=== PATIENT | female | born 1970 | race Caucasian/White ===

== ENCOUNTER 2017-08-04 09:45 | Emergency (ER) | payer OTHER ==
[~2017-08-04] VITALS: Ht 172.7 cm; Wt 102.1 kg
[2017-08-04 10:35] LABS: HEMOGLOBIN 14.5 g/dL (12.2-16.2); LYMPH # 2.4 K/mm3 (0.7-4.5); LYMPH % 25.3 % (10-50.0)
--- NOTE | 2017-08-04 10:35 | [facility]gent [facility] Report ---
History of Present Issue Date/Time Seen by Provider 08/04/17 1013 Visit Reason Pt arrived:Walked Presenting Problem:PT STATES STIFF NECK AND SORENESS/PAIN X3 DAYS Location if Accident: Onset of symptoms date/time:08/01/17/ or onset unknown for:MEDICAL HX UNKNOWN Have you (or family members/close friends) recently traveled outside the [place]? N If Yes, where/when: Have you had exposure to infectious disease within the past month? TB? Other? Specify: Patient state that she has been having pain in the left side of her neck now for a couple days that has continued to get worse. States that this morning she awoke and it was painful to try to turn her head States that she use to do a lot of heavy lifting at her job and not sure if this is muscle related or if she has some lymph nodes that are swollen. States that the left side of her neck area feels a little swollen so she was worried and came in to get checked ALLERGIES Coded Allergies: Sulfa (Sulfonamide Antibiotics) (08/04/17) nitrofurantoin (08/04/17) Home Medications Reported Medications No Known Home Medications History Medical History General CAD? No Angina: No [place]: No Hypertension? Yes Hyperlipidemia? No CHF? No DVT? No PE? No COPD? No Asthma? No Anemia? No GERD? No Gastric ulcers? No GI Bleed? No Hernia? Yes Thyroid Problems? No Hypothyroidism? No CVA? No Seizures? No Diabetes? No Renal Insuffiency? No UTI? Yes Stones? No BPH? No GB Disease: Yes Nephritic Syndrome? No Asplenia? No Hepatitis? No Sickle Cell Disease? No Arthritis? No Migraines? No Cataracts? No Glaucoma? No MRSA? Yes HIV? No TB? No Anxiety? No Depression? No Cancer? No Immunization HX DT/Tetanus 5-10 YRS Flu 2YRSorMore Pneumonia NEVER Surgical Hx Previous Surgery?Y TONSILECTOMY D & C RIGHT KNEE CARTLIAGE RIGHT ARM C-SECT ABD. EXPL. [place] Family History Family HX Diabetes Yes CAD Yes Hypertension Yes Hyperlipidemia Yes Cancer No TB No Social History Smoking Hx Smoker: Former Smoker Tobacco: No Packs/day < 1 Pack Alcohol Alcohol: No Review of Systems All Other Systems Reviewed and Negative Musculoskeletal neck pain Comment Pain in left side of neck and shoulder area with movement denies injury Physical Exam Vital Signs Vital Signs Date Time Temp Pulse Resp B/P Pulse O2 O2 Flow FiO2 Ox Delivery Rate 08/04 1040 20 08/04 1001 98.8 83 18 148/104 100 General Appearance normal appearance, WD/WN, no apparent distress Neck tenderness noted left side of neck, muscle spasm felt left upper shoulder area into left side of neck Respiratory Status Yes: trachea midline, chest symmetrical, non tender chest. No: respiratory distress. 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 No Results/Orders Laboratory Tests 08/04/17 1025: WBC 9.6, RBC 4.76, Hgb 14.5, Hct 43.5, MCV 91.4, RDW 12.7, Plt Count 388, MPV 7.3 L, Gran % 64.6, Gran # 6.2, Lymphocytes % 25.3, Monocytes % 5.7, Eosinophils % 3.5, Basophils % 0.9, Lymphocytes # 2.4, Monocytes # 0.5, Eosinophils # 0.3, Basophils # 0.1, PUBS MCHC 33.2, MCH 30.4 Current Medication Orders Sig/Ab Start time Last Medication Dose Route Stop Time Status Admin Orphenadrine Citrate 60 MG ONCE ONE 08/04 1045 DC 08/04 IM 08/04 1046 1039 Ketorolac 0 .STK-MED ONE 08/04 1038 DC Tromethamine .ROUTE Orphenadrine Citrate 0 .STK-MED ONE 08/04 1038 DC .ROUTE Ketorolac 60 MG ONCE ONE 08/04 1030 DC 08/04 Tromethamine IM 08/04 1031 1040 Orders Procedure Date/time Status CBC WITH AUTO DIFF 08/04 1022 Complete Progress [facility] Progress Notes Comment Patient state that she is feeling better after medication state that her neck does not feel as stiff and pain is much better now able to move neck some without pain Departure Departure Time of Disposition 1106 Disposition DC Home or Self Care(routine) Clinical Impression Primary Impression: Muscle spasm Condition STABLE 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
[2017-08-04] MEDS ORDERED: ETODOLAC200 MG PO (11:13)
[2017-08-04] MEDS ORDERED: FLEXERIL10 MG PO (11:13)
[2017-08-04 11:17] VITALS: BP 148/104
== END 2017-08-04 11:19 | disposition home or self-care (01) ==
LOC: UTC 09:45
PROVIDERS: Nurse Practitioner
DX: M62.830 Muscle spasm of back (principal); Z87.891 Personal history of nicotine dependence